=== PATIENT | female | born 1970 | race Caucasian/White ===

== ENCOUNTER 2020-05-21 21:43 | Emergency (ER) | payer BC ==
[~2020-05-21] VITALS: Ht 154.9 cm; Wt 84.1 kg
--- NOTE | 2020-05-21 22:53 | NUR ---
Vascular at bedside.
[2020-05-21 23:32] VITALS: BP 145/84
== END 2020-05-21 23:33 | disposition home or self-care (01) ==
LOC: ER 21:44
DX: M79.605 Pain in left leg (principal); M79.89 Other specified soft tissue disorders; I10 Essential (primary) hypertension
CPT/HCPCS: 93971; 99284

== ENCOUNTER 2022-01-25 21:17 | Emergency (ER) | payer BC ==
[~2022-01-25] VITALS: Ht 154.9 cm; Wt 93.2 kg
[2022-01-25 21:37] VITALS: BP 140/78
[2022-01-26] MEDS ORDERED: cephalexin 250mg capsule PO ONE (03:25)
[2022-01-26] MEDS ORDERED: CEPH-585 PO (03:28)
--- NOTE | 2022-01-26 03:33 | NUR ---
po med given
== END 2022-01-26 03:34 | disposition home or self-care (01) ==
LOC: ER 21:18
DX: L03.114 Cellulitis of left upper limb (principal); I10 Essential (primary) hypertension; E78.00 Pure hypercholesterolemia, unspecified; Z79.2 Long term (current) use of antibiotics
CPT/HCPCS: 93971; 99284